=== PATIENT | female | born 1965 | race African-American/Black ===

== ENCOUNTER 2018-01-17 10:17 | Emergency (ER) | payer OTHER ==
[~2018-01-17] VITALS: Ht 180.3 cm; Wt 127.3 kg
[2018-01-17 11:33] LABS: HEMATOCRIT 43.5 % (36.0-46.0); HEMOGLOBIN 14.6 G/DL (11.9-15.5); MCH 29.6 PG (29.0-34.0); MCHC 33.6 G/DL (30.0-36.0); MCV 88.1 FL (83-99); PLATELET COUNT 292 K/uL (156-360); RBC DIS.WIDTH-CV 14.3 % (11.8-14.6); RBC DIS.WIDTH-SD 45.4 % (39-53); RED BLOOD COUNT 4.94 M/uL (3.80-5.20); WHITE BLOOD COUNT 7.5 K/uL (4.1-10.2)
[2018-01-17] MEDS ORDERED: METFORMIN HCL500 MG PO (11:35)
[2018-01-17 11:39] LABS: APPEARANCE SL.HAZY ((CLEAR)); BILIRUBIN NEGATIVE; BLOOD SMALL; COLOR YELLOW ((YELLOW)); GLUCOSE (STRIP) NEGATIVE; KETONES NEGATIVE; LEUKOCYTES TRACE; NITRITE NEGATIVE; PROTEIN (STRIP) 30; SPECIFIC GRAVITY 1.021 (1.000-1.030); UROBILINOGEN 0.2 MG/DL (0.2-1.0)
[2018-01-17 11:47] LABS: BACTERIA RARE /HPF; EPITHELIAL CELLS 1+ /HPF; MUCUS TRACE /LPF
[2018-01-17 11:50] LABS: CHLORIDE 105 mEq/L (99-109); POTASSIUM 4.1 mEq/L (3.7-5.4); SODIUM 140 mEq/L (136-147)
[2018-01-17 11:51] LABS: GLUCOSE 110 mg/dL (70-99)
[2018-01-17 11:55] LABS: CREATININE 0.9 mg/dL (0.6-1.3)
[2018-01-17 11:56] LABS: GFR ESTIMATE (CALCULATED) > 59 mL/min/; UREA NITROGEN (BUN) 13 mg/dL (9-23)
[2018-01-17 12:06] VITALS: BP 149/96
== END 2018-01-17 12:08 | disposition home or self-care (01) ==
LOC: EME 10:17
PROVIDERS: Nurse Practitioner Family
DX: E11.9 Type 2 diabetes mellitus without complications (principal); Z76.0 Encounter for issue of repeat prescription; F17.200 Nicotine dependence, unspecified, uncomplicated; Z79.84 Long term (current) use of oral hypoglycemic drugs
CPT/HCPCS: 80048; 81003; 85027; 99281; 99283

== ENCOUNTER 2018-03-09 17:23 | Emergency (ER) | payer OTHER ==
[~2018-03-09] VITALS: Ht 180.3 cm; Wt 129.4 kg
[~2018-03-09 17:23] MED LIST: METFORMIN HCL500 MG PO
[2018-03-09] MEDS ORDERED: FLEXERIL10 MG PO (19:37)
[2018-03-09] MEDS ORDERED: LYRICA50 MG PO (19:41)
[2018-03-09 20:41] VITALS: BP 148/97
== END 2018-03-09 20:41 | disposition home or self-care (01) ==
LOC: EME 17:23
DX: M54.42 Lumbago with sciatica, left side (principal); E11.9 Type 2 diabetes mellitus without complications; Z87.891 Personal history of nicotine dependence; Z79.84 Long term (current) use of oral hypoglycemic drugs
CPT/HCPCS: 99281; 99284; J1885